=== PATIENT | male | born 1965 | race Caucasian/White ===

== ENCOUNTER 2020-10-06 21:52 | Emergency (ER) | payer BC ==
[2020-10-06] MEDS ORDERED: Sodium Chloride 0.9% 10 ML Syringe FLUSH PRN (22:05)
[2020-10-06] MEDS ORDERED: Sodium Chloride 0.9% 2.5 ML Syringe FLUSH PRN (22:05)
[2020-10-06] MEDS ORDERED: Aspirin 81 MG Tab.Chew PO ONE (22:05)
[2020-10-06] MEDS ORDERED: Sodium Chloride 0.9% 1,000 ML IV ONE (22:05)
[2020-10-06 22:27] LABS: BLOOD UREA NITROGEN,BUN 21 mg/dL (7.0-18.0); CARBON DIOXIDE,CO2 28.4 mmol/L (21.0-32.0); CHLORIDE,CL 105 mmol/L (98-107); GLUCOSE RANDOM 133 mg/dL (74-106); POTASSIUM,K 4.3 mmol/L (3.5-5.1); SODIUM,NA 140 mmol/L (136-148)
--- NOTE | 2020-10-06 23:19 | CR ---
INDICATION: Chest pain TECHNIQUE: Chest radiograph 1 view COMPARISON: 09/21/2018 FINDINGS: Moderate degradation of image quality noted due to body habitus. Mediastinum: The mediastinum is normal in appearance. The heart silhouette is normal in size and morphology. Lung: Both lungs are unremarkable in appearance. No sign of pleural effusion seen. No pneumothorax is identified. Bone and Soft tissue: Unremarkable for age. IMPRESSION: 1. No acute cardiopulmonary disease is seen. Dictated by: Jatin Thompson MD @ 10/06/2020 23:17:44 (Electronically Signed)
--- NOTE | 2020-10-07 00:27 | EDM.PDOC ---
ED HPI GENERAL MEDICAL PROBLEM - General Chief Complaint: Chest Pain Stated Complaint: POSSIBLE AFIB Time Seen by Provider: 10/06/20 21:58 - History of Present Illness INITIAL COMMENTS - FREE TEXT/NARRATIVE: HISTORY AND PHYSICAL: History of present illness: This is a 55-year-old gentleman with a history significant for atrial fibrillation who presents ER today complaining of a discomfort in his chest that was similar to what he had when he was diagnosed with atrial fibrillation in the past. Patient reports that when he was diagnosed with atrial fibrillation several years ago he had cardioverted back to normal sinus rhythm. He was told by the gauger delivery at that time that if he started having weird sensation in his chest to take flecainide 100 mg tablet as needed. Patient is adamant that he was told to do this as needed up to 3 times and if not improved that he should come to the ER to be evaluated. Patient reports that over the last couple years he has had to take 1 to 2 tablets of flecainide as needed for a weird sensation in his chest a couple times a year. Patient reports that today he started feeling that same sensation and took a total of 2 flecainide and 2 of the second pill that was prescribed to him(does not recall name) and symptoms persisted. He reports that he checked his blood pressure at that time and his heart rate was 120 and so he came to the ER for further evaluation. Upon arrival to the ER the patient reports he is discomfort free and feels well. Patient denies any recent fevers, shakes, chills, nausea, vomiting, diarrhea, dysuria, frequency, urgency, abdominal pain. Patient denies any diaphoresis, pain rating to his arm jaw or back, shortness of breath. Patient reports that the sensation in his chest occurred while he was at rest. Review of systems: As per history of present illness and below otherwise all systems reviewed and negative. Past medical history: As per history of present illness and as reviewed below otherwise noncontributory. Surgical history: As per history of present illness and as reviewed below otherwise noncontributory. Social history: No reported history of drug or alcohol abuse. Family history: As per history of present illness and as reviewed below otherwise noncontributory. Physical exam: HEENT: Atraumatic, normocephalic, pupils reactive, negative for conjunctival pallor or scleral icterus, mucous membranes moist, throat clear, neck supple, nontender, trachea midline. Lungs: Clear to auscultation, breath sounds equal bilaterally, chest nontender. Heart: S1S2, regular, negative for clicks, rubs, or JVD. Abdomen: Soft, nondistended, nontender. Negative for masses or hepatosplenomegaly. Negative for costovertebral tenderness. Pelvis: Stable nontender. Genitourinary: Deferred. Rectal: Deferred. Extremities: Atraumatic, negative for cords or calf pain. Neurovascular unremarkable. Neuro: Awake, alert, oriented. Cranial nerves II through XII unremarkable. Cerebellum unremarkable. Motor and sensory unremarkable throughout. Exam nonfocal. Diagnostics: EKG: As interpreted by ER physician: Shani: Nonspecific ST-T wave abnormalities Normal axis No evidence of ST elevation [place] Normal sinus rhythm heart rate of 75 Chest Xray: Normal cardiac silhouette No infiltrates or effusions identified. No PTX No evidence of acute bony fracture. As interpreted by ER MD: Shani CBC, CMP, troponin within normal limits Assessment and plan: This is a 55-year-old gentleman who presents ER today secondary to concerns about atrial fibrillation with a sensation in his chest typical to what he had with his prior atrial fibrillation. He reports that his pulse was running approximately 120 at that time. Upon arrival to the ER the patient is asymptomatic and his pain is resolved. While in the ER, the patient had a normal appearing EKG without any evidence of ST elevation [place]. Patient's CBC, CMP, troponin all within normal limits. Patient's been monitored in the ER for approximately 3 hours and he reports he has been symptom-free while he has been here. Given his history of atrial fibrillation I have recommended that the patient be admitted to the hospital for further monitoring. The patient is adamant that he does not feel that admission is required. I did give him the opportunity to discuss with his however he reports that he feels very comfortable and would prefer to go home at this time. Utilizing shared decision making with this patient, I feel that discharged home with close outpatient follow-up with his gauger delivery is a viable option although not ideal. Patient is excepting risks of being discharged and understands that it is a suboptimal course of action and that admission would be the safest course of action for him. Patient still requesting to be discharged home and agrees to follow-up with his doctor, Dr. Moncada, for further cardiac evaluation and will return to the ER if he changes his mind. Definitive disposition and diagnosis as appropriate pending reevaluation and review of above. Left Upper Arm Pain Score (Numeric/FACES): 5 - Related Data Allergies Allergy/AdvReac Type Severity Reaction Status Date / Time No Known Allergies Allergy Verified 10/07/20 00:11 Home Meds: Home Meds Fish Oil/Waterman-3 Fatty Acids [Fish Oil] 1 cap PO DAILY 09/21/18 [History] Multivitamin [Multivitamins] 1 tab PO DAILY 09/21/18 [History] Omeprazole 20 mg PO DAILY 09/21/18 [History] Apixaban [Eliquis] 5 mg PO Q12H 30 Days #60 tablet 09/22/18 [Rx] Diltiazem [Cardizem CD] 120 mg PO BEDTIME 30 Days #30 cap.cd 09/22/18 [Rx] Past Medical History HEENT History: Reports: None Cardiovascular History: Reports: Other (See Below) Other Cardiovascular History: angiogram Respiratory History: Reports: None Gastrointestinal History: Reports: None Genitourinary History: Reports: None Musculoskeletal History: Reports: None Neurological History: Reports: None Psychiatric History: Reports: None Endocrine/Metabolic History: Reports: None Hematologic History: Reports: None Immunologic History: Reports: None Oncologic (Cancer) History: Reports: None Dermatologic History: Reports: None - Infectious Disease History Infectious Disease History: Reports: None - Past Surgical History HEENT Surgical History: Reports: None Respiratory Surgical History: Reports: None GI Surgical History: Reports: Colonoscopy, Polypectomy Social & Family History - Family History Family Medical History: No Pertinent Family History - Tobacco Use Tobacco Use Status *Q: Never Tobacco User Second Hand Smoke Exposure: No - Caffeine Use Caffeine Use: Reports: Soda Caffeine Use Comment: 1-2 drinks/day - Recreational Drug Use Recreational Drug Use: No ED ROS GENERAL - Review of Systems Review Of Systems: See Below ED EXAM, GENERAL - Physical Exam Exam: See Below #1 Interpretation EKG Interpretation Comments: EKG: As interpreted by ER physician: Shani: Nonspecific ST-T wave abnormalities Normal axis No evidence of ST elevation [place] Normal sinus rhythm heart rate of 75 Course - Vital Signs Last Recorded V/S: Last Vital Signs Temp 97.8 F 10/06/20 21:54 Pulse 66 10/07/20 00:26 Resp 16 10/07/20 00:26 BP 137/83 10/07/20 00:26 Pulse Ox 97 10/07/20 00:26 - Orders/Labs/Meds Orders: Active Orders 24 hr Category Date Time Status CORONAVIRUS COVID-19 AVANI [MOLEC] Stat Lab 10/06/20 22:07 Ordered Saline Lock Insert [OM.PC] Stat Oth 10/06/20 22:05 Ordered Labs: Laboratory Tests 10/06/20 10/06/20 10/06/20 Range/Units 21:57 21:57 21:57 WBC 11.09 H (4.0-11.0) K/uL RBC 5.63 (4.50-5.90) M/uL Hgb 17.2 H (13.0-17.0) g/dL Hct 48.4 (38.0-50.0) % MCV 86.0 (80.0-98.0) fL MCH 30.6 (27.0-32.0) pg MCHC 35.5 (31.0-37.0) g/dL RDW Std Deviation 42.7 (28.0-62.0) fl RDW Coeff of Dillon 14 (11.0-15.0) % Plt Count 277 (150-400) K/uL MPV 9.10 (7.40-12.00) fL Neut % (Auto) 55.9 (48.0-80.0) % Lymph % (Auto) 33.2 (16.0-40.0) % [place] % (Auto) 7.9 (0.0-15.0) % Eos % (Auto) 2.6 (0.0-7.0) % Baso % (Auto) 0.4 (0.0-1.5) % Neut # (Auto) 6.2 H (1.4-5.7) K/uL Lymph # (Auto) 3.7 H (0.6-2.4) K/uL Gooding # (Auto) 0.9 H (0.0-0.8) K/uL Eos # (Auto) 0.3 (0.0-0.7) K/uL Baso # (Auto) 0.0 (0.0-0.1) K/uL Nucleated RBC % 0.0 /100WBC Nucleated RBCs # 0 K/uL Sodium 140 (136-148) mmol/L Potassium 4.3 (3.5-5.1) mmol/L Chloride 105 (98-107) mmol/L Carbon Dioxide 28.4 (21.0-32.0) mmol/L BUN 21 H (7.0-18.0) mg/dL Creatinine 1.3 (0.8-1.3) mg/dL Est Cr Clr Drug Dosing TNP Estimated GFR (MDRD) 57.7 ml/min Glucose 133 H (74-106) mg/dL Calcium 9.3 (8.5-10.1) mg/dL Total Bilirubin 0.5 (0.2-1.0) mg/dL AST 17 (15-37) IU/L ALT 37 (14-63) IU/L Alkaline Phosphatase 108 (46-116) U/L Troponin I < 0.050 (0.000-0.056) ng/mL B-Natriuretic Peptide 15 (<100) PG/ML Total Protein 7.1 (6.4-8.2) g/dL Albumin 3.9 (3.4-5.0) g/dL Globulin 3.2 (2.6-4.0) g/dL Albumin/Globulin Ratio 1.2 (0.9-1.6) Urine Color Urine Appearance Urine pH (5.0-8.0) Ur Specific [place] (1.001-1.035) Urine Protein (NEGATIVE) mg/dL Urine Glucose (UA) (NEGATIVE) mg/dL Urine Ketones (NEGATIVE) mg/dL Urine Occult Blood (NEGATIVE) Urine Nitrite (NEGATIVE) Urine Bilirubin (NEGATIVE) Urine Urobilinogen (<2.0) EU/dL Ur Leukocyte Esterase (NEGATIVE) 10/06/20 Range/Units 23:51 WBC (4.0-11.0) K/uL RBC (4.50-5.90) M/uL Hgb (13.0-17.0) g/dL Hct (38.0-50.0) % MCV (80.0-98.0) fL MCH (27.0-32.0) pg MCHC (31.0-37.0) g/dL RDW Std Deviation (28.0-62.0) fl RDW Coeff of Dillon (11.0-15.0) % Plt Count (150-400) K/uL MPV (7.40-12.00) fL Neut % (Auto) (48.0-80.0) % Lymph % (Auto) (16.0-40.0) % Good[place] % (Auto) (0.0-15.0) % Eos % (Auto) (0.0-7.0) % Baso % (Auto) (0.0-1.5) % Neut # (Auto) (1.4-5.7) K/uL Lymph # (Auto) (0.6-2.4) K/uL Good[place] # (Auto) (0.0-0.8) K/uL Eos # (Auto) (0.0-0.7) K/uL Baso # (Auto) (0.0-0.1) K/uL Nucleated RBC % /100WBC Nucleated RBCs # K/uL Sodium (136-148) mmol/L Potassium (3.5-5.1) mmol/L Chloride (98-107) mmol/L Carbon Dioxide (21.0-32.0) mmol/L BUN (7.0-18.0) mg/dL Creatinine (0.8-1.3) mg/dL Est Cr Clr Drug Dosing Estimated GFR (MDRD) ml/min Glucose (74-106) mg/dL Calcium (8.5-10.1) mg/dL Total Bilirubin (0.2-1.0) mg/dL AST (15-37) IU/L ALT (14-63) IU/L Alkaline Phosphatase (46-116) U/L Troponin I (0.000-0.056) ng/mL B-Natriuretic Peptide (<100) PG/ML Total Protein (6.4-8.2) g/dL Albumin (3.4-5.0) g/dL Globulin (2.6-4.0) g/dL Albumin/Globulin Ratio (0.9-1.6) Urine Color YELLOW Urine Appearance CLEAR Urine pH 6.0 (5.0-8.0) Ur Specific [place] 1.020 (1.001-1.035) Urine Protein NEGATIVE (NEGATIVE) mg/dL Urine Glucose (UA) NEGATIVE (NEGATIVE) mg/dL Urine Ketones NEGATIVE (NEGATIVE) mg/dL Urine Occult Blood NEGATIVE (NEGATIVE) Urine Nitrite NEGATIVE (NEGATIVE) Urine Bilirubin NEGATIVE (NEGATIVE) Urine Urobilinogen 0.2 (<2.0) EU/dL Ur Leukocyte Esterase NEGATIVE (NEGATIVE) Meds: Medications Discontinued Medications Generic Name Dose Route Start Last Admin Trade Name Keenanq PRN Reason Stop Dose Admin Aspirin 324 mg 10/06/20 22:05 10/06/20 23:06 Aspirin PO 10/06/20 22:06 324 mg ONETIME ONE Administration Sodium Chloride 1,000 mls @ 999 mls/hr 10/06/20 22:05 10/06/20 23:06 Normal Saline IV 10/06/20 23:05 999 mls/hr .Bolus ONE Administration Sodium Chloride 10 ml 10/06/20 22:05 10/06/20 23:06 Saline Flush FLUSH 10 ml ASDIRECTED PRN Administration Keep Vein Open Sodium Chloride 2.5 ml 10/06/20 22:05 10/06/20 23:06 Saline Flush FLUSH 2.5 ml ASDIRECTED PRN Administration Keep Vein Open Departure - Departure Time of Disposition: 00:27 Disposition: Home, Self-Care 01 Condition: Good Clinical Impression: Palpitations, Nonspecific chest pain - Discharge Information Instructions: Nonspecific Chest Pain, Adult, Palpitations, [id number] Referrals: Pillo Gray MD [Primary Care Provider] - Forms: ED Department Discharge Additional Instructions: You were seen and evaluated in ER today secondary to abnormal sensation in your chest that was concerning for atrial fibrillation. Your cardiac work-up in the ER today is normal. Utilizing shared decision making, you have opted to be discharged home and will make an appointment to see your gauger delivery on Thursday. Please return to the ER if you change your mind regarding wanting to be admitted to the hospital or if you develop any new or concerning symptoms. In the meantime, get plenty of rest, take an aspirin a day. The following information is given to patients seen in the emergency department who are being discharged to home. This information is to outline your options for follow-up care. We provide all patients seen in our emergency department with a follow-up referral. The need for follow-up, as well as the timing and circumstances, are variable depending upon the specifics of your emergency department visit. If you don't have a primary care physician on staff, we will provide you with a referral. We always advise you to contact your personal physician following an emergency department visit to inform them of the circumstance of the visit and for follow-up with them and/or the need for any referrals to a consulting specialist. The emergency department will also refer you to a specialist when appropriate. This referral assures that you have the opportunity for follow-up care with a specialist. All of these measure are taken in an effort to provide you with optimal care, which includes your follow-up. Under all circumstances we always encourage you to contact your private physician who remains a resource for coordinating your care. When calling for follow-up care, please make the office aware that this follow-up is from your recent emergency room visit. If for any reason you are refused follow-up, please contact the [facility] Emergency Department at and asked to speak to the emergency department charge nurse. [facility] [address] [place] [address] [place] [address] Sepsis Event Note (ED) - Evaluation Sepsis Screening Result: No Definite Risk - Focused Exam Vital Signs: Vital Signs Temp Pulse Resp BP Pulse Ox 10/07/20 00:26 66 16 137/83 97 10/06/20 23:09 73 16 122/80 96 10/06/20 21:54 97.8 F 76 20 165/103 H 98 - My Orders Last 24 Hours: My Active Orders 10/06/20 22:05 Saline Lock Insert [OM.PC] Stat 10/06/20 22:07 CORONAVIRUS COVID-19 AVANI [MOLEC] Stat - Assessment/Plan Last 24 Hours: My Active Orders 10/06/20 22:05 Saline Lock Insert [OM.PC] Stat 10/06/20 22:07 CORONAVIRUS COVID-19 AVANI [MOLEC] Stat
== END 2020-10-07 00:35 | disposition home or self-care (01) ==
LOC: MW.ED 21:52
DX: R07.9 Chest pain, unspecified (principal); R00.2 Palpitations; Z79.01 Long term (current) use of anticoagulants; Z79.899 Other long term (current) drug therapy
CPT/HCPCS: 36415; 71045; 71045-26; 80053; 81003; 83880; 84484; 85025; 93005; 93010; 99284; 99285-25; A9270-GY; J7030